=== PATIENT | female | born 1980 | race Two or more races ===

== ENCOUNTER 2016-04-20 13:48 | Emergency (ER) | payer MEDICAID ==
[~2016-04-20] VITALS: Ht 162.6 cm; Wt 72.6 kg
--- NOTE | 2016-04-20 14:41 | Emergency Room Report ---
History of Present Illness General Chief Complaint: Complications Source: Patient Present Illness HPI 35-year-old female presents to emergency Department complaining of decrease in movement x3 days in addition to hardening of the abdomen , and cramping pain that started last night and has progressively gotten worse. pt. denies vaginal d/c, bleeding or other fluids. Pt. is . Pt. denies N/V/F/C. Allergies: Coded Allergies: No Known Allergies (Unverified , 04/20/16) Patient History Past Medical History: see triage record Past Surgical History: none Pertinent Family History: none Last Menstrual Period: Nov 26 2015 Now: Yes : 4 Para: 3 Nursing Documentation-PMH Past Medical History: No Stated History Review of Systems All Other Systems: negative except mentioned in HPI Physical Exam Vital Signs Date Time Temp Pulse Resp B/P Pulse Ox O2 Delivery O2 Flow Rate FiO2 04/20/16 14:06 97.9 99 16 90/60 99 Room Air Sp02 EP Interpretation: reviewed, normal Respiratory: lungs clear, normal breath sounds, no rhonchi Cardiovascular #1: regular rate, rhythm, no edema, normal capillary refill Gastrointestinal: other - Fundus palpated just below the umbillicus, no contractions palpated durring very limited abdominal exam Medical Decision Making PA Attestation Dr. pan is my supervising Physician whom patient management has been discussed with. Diagnostic Impression: Primary Impression: with suprapubic cramping, antepartum ER Course Patient decided to leave AMA as she wants to be fully evaluated including monitoring patient states that she will go directly to the facility rather than have us facilitate transport. Discussed with patient the importance of being fully evaluated and that we're more than happy to start her evaluation here and facilitate transfer however she states she would rather go with her sister to a facility with L&D and FST capabilities. DISPOSITION: - At this time the patient is requesting to leave AGAINST MEDICAL ADVICE. I believe that this patient has the capacity to make decisions on Her own. I discussed with the patient the risks of leaving AMA. Some of these risks include delay in diagnosis and treatment, as well as worsening of symptoms, organ damage, and permanent disability or even . After discussing these risks with the patient. She continues to express Her want to leave AGAINST MEDICAL ADVICE. I encouraged the patient to return at any time, and that she will be welcome here in the emergency department to continue medical management. Last Vital Signs Date Time Temp Pulse Resp B/P Pulse Ox O2 Delivery O2 Flow Rate FiO2 04/20/16 14:06 97.9 99 16 90/60 99 Room Air Disposition: AGAINST MEDICAL ADVICE Condition: Unknown Referrals: NON PHYSICIAN (PCP) Patient Instructions: Abdominal Pain During Additional Instructions: Follow up with OBGYN Return sooner to ED if new symptoms occur, or current symptoms become worse. RECOMMEND FST Monitoring of the RE - Please note that this Emergency Department Report was dictated using [employer] tester technology software, occasionally this can lead to erroneous entry secondary to interpretation by the dictation equipment. Katelyn Bartlett Apr 20, 2016 14:41
[2016-04-20 14:59] VITALS: BP 100/70
== END 2016-04-20 15:00 | disposition left against medical advice (07) ==
LOC: EMR 14:20
DX: O26.892 Other specified pregnancy related conditions, second trimester (principal); O36.8120 Decreased fetal movements, second trimester, not applicable or unspecified; Z3A.00 Weeks of gestation of pregnancy not specified; R10.30 Lower abdominal pain, unspecified
CPT/HCPCS: 99282